=== PATIENT | male | born 1970 | race Asian ===

== ENCOUNTER 2022-09-20 10:17 | Day surgery (SDC) | payer OTHER ==
[~2022-09-20] VITALS: Ht 175.3 cm; Wt 81.6 kg
[~2022-09-20 10:17] MED LIST: NS 1,000 ML IV ONE
[2022-09-20] MEDS ORDERED: propofoL 200 MG/20 ML VIAL As Ordered ONE (10:54)
[2022-09-20] MEDS ORDERED: LIDOCAINE 2% 100MG/5ML SDV (FOR ANES.) As Ordered ONE (10:54)
[2022-09-20 11:32] VITALS: BP 117/86
== END 2022-09-20 11:55 | disposition home or self-care (01) ==
LOC: M OPP 10:17
PROVIDERS: ATTEND Internal Medicine Gastroenterology
DX: Z12.11 Encounter for screening for malignant neoplasm of colon (principal); K64.0 First degree hemorrhoids